=== PATIENT | female | born 1990 | race African-American/Black ===

== ENCOUNTER 2020-03-31 08:37 | Emergency (ER) | payer MEDICAID ==
[~2020-03-31] VITALS: Ht 167.6 cm; Wt 67.0 kg
[2020-03-31 08:46] VITALS: BP 130/67
== END 2020-03-31 09:43 | disposition home or self-care (01) ==
LOC: ER 09:09
DX: H60.91 Unspecified otitis externa, right ear (principal)
CPT/HCPCS: 99283